=== PATIENT | male | born 1990 | race Caucasian/White ===

== ENCOUNTER → 2017-08-13 12:18 | Outpatient (CLI) | payer BC, SELFPAY ==
--- NOTE | 2017-08-13 | US_ITS ---
US abdomen limited: HISTORY: ITS.REASON: RUQ PAIN, abnormal CT ORDERING PHYSICIAN: Gema Alba PATIENT AGE: 27 years COMPARISON: 08/13/2017 FINDINGS: PANCREAS: Not well delineated due to overlying bowel gas LIVER: Fatty liver. No focal liver lesions or biliary dilatation. RIGHT KIDNEY: Unremarkable. Normal size and echogenicity. No hydronephrosis GALLBLADDER: Mildly distended gallbladder with stones and sludge. No gallbladder wall thickening, pericholecystic fluid, or biliary dilatation. Common bile duct measures 3 mm. IMPRESSION: Cholelithiasis with gallbladder sludge and mildly distended gallbladder
[2017-08-13 12:38] LABS: Basophils # 0.1 K/mm3 (0-0.2); Basophils % 0.8 % (0.1-2.0); Eosinophils # 0.2 K/mm3 (0.0-0.4); Eosinophils % 1.9 % (0.1-12.0); Hematocrit 46.9 % (42.0-52.0); Lymphocytes # 2.2 K/mm3 (0.7-4.5); Lymphocytes % 27.7 K/mm3 (10-50); Mean Corpuscular HGB Conc 34.1 g/dL (31.8-35.4); Mean Corpuscular Hemoglobin 29.6 pg (27.0-31.2); Mean Corpuscular Volume 86.9 fl (80-94); Mean Platelet Volume 7.4 fl (7.4-10.4); Monocytes # 0.6 K/mm3 (0.1-1.0); Monocytes % 7.5 % (1.7-9.3); Neutrophils # 4.9 K/mm3 (1.8-7.8); Neutrophils % 62.2 % (37.0-80.0); Platelet Count 279 K/mm3 (142-424); White Blood Count 7.8 K/mm3 (4.8-10.8)
[2017-08-13 13:10] LABS: Alanine Aminotransferase 508 U/L (12-78); Albumin Level 3.9 gm/dL (3.4-5.0); Albumin/Globulin Ratio 0.9 (1.1-1.8); Alkaline Phosphatase 243 U/L (46-116); Amylase 39 U/L (25-125); Anion Gap 14.8 mEq/L (5-15); Aspartate Amino Transferase 151 U/L (15-37); Bilirubin,Total 5.1 mg/dL (0.2-1.0); Blood Urea Nitrogen 10 mg/dL (7-18); Calcium 9.6 mg/dL (8.5-10.1); Carbon Dioxide 26 mmol/L (21.0-32.0); Chloride 104 mmol/L (98-107); Creatinine,Serum 0.91 mg/dL (0.70-1.30); Estimated Glomerular Filt Rate 101 ml/min (>60); GFR (African American) 122 ML/MIN (>60); Globulin 4.3 gm/dl (1.3-3.2); Glucose 96 mg/dL (74-106); Lipase 122 u/L (73-393); Potassium 3.8 mmoL/L (3.5-5.1); Sodium 141 mmol/L (136-145); Total Protein,Serum 8.2 gm/dL (6.4-8.2)
--- NOTE | 2017-08-13 14:36 | CT_ITS ---
CT abdomen pelvis w con CLINICAL INDICATION: Right upper quadrant pain with elevated liver enzymes ITS.REASON: RUQ PAIN ORDERING PHYSICIAN: Gema Alba PATIENT AGE: 27 years COMPARISON: 07/17/2016 TECHNIQUE: Axial images obtained with sagittal and coronal reformats. All CT scans at the facility use one or more dose reduction, viz: automated exposure control; ma/kV adjustment per patient size (including targeted exams where dose is matched to indication; i.e. head); or iterative reconstruction technique. PROCEDURE: Oral Contrast: Redicat IV Contrast: 75 mL's of Isovue-370. FINDINGS: No acute finding in the lung bases. The immediate enhanced images there is a subtle area of decreased attenuation involving either aspect of the right hepatic lobe at 4 mm anterior to the gallbladder. This is of questionable clinical significance not apparent on the delayed images and millimeters in volume averaging artifact. There is some increased density within the posterior aspect of the gallbladder may be related to stones and/or sludge. Gallbladder is somewhat elongated at 10 cm. No obvious biliary ductal dilatation. The spleen, adrenal glands, pancreas, and kidneys have an unremarkable appearance. No intestinal obstruction or free air is evident. No evidence of appendicitis or diverticulitis There is mild thickening of the ascending colon and hepatic flexure. This could be due to mild colitis or nondistention. No pelvic mass abnormal fluid collection or focal inflammatory changes evident. No acute bony anomalies. IMPRESSION: 1. Slight increased density along the posterior aspect of the gallbladder which may be related to stones and/or sludge. Ultrasound may be of further value. 2. Mild thickening of the ascending colon and hepatic flexure. This may be due to nondistention or mild colitis.
== END ==
PROVIDERS: Visit Provider Nurse Practitioner Family
DX: R10.11 Right upper quadrant pain (principal)
CPT/HCPCS: 36415; 74177; 76705; 80053; 82150; 83690; 85025; Q9967

== ENCOUNTER 2020-07-15 10:34 | Emergency (ER) | payer BC, SELFPAY ==
[2020-07-15 10:40] VITALS: BP 129/80; PULSE 96; RESP 20; TEMP 37; O2SAT 100; BMI 35.1
--- NOTE | 2020-07-15 10:54 | HMH.EDUTC ---
[facility] Disposition Clinical Impression: Encounter for laboratory testing for COVID-19 virus Disposition: Home, Self-Care Condition on Discharge: Good Instructions: DI for COVID-19 (Suspected or Confirmed ), Preventing the Spread of Coronavirus Discharge Instructions Additional Instructions: You were tested for today for COVID19 your test result should be back in the next 24-48 hours, you may call to the [facility] to see if your test results are back in the next 48 hours [phone] [facility] hours are 9am-9pm You was given a handout with instructions for Self Quarantine and Self isolation for while you wait on test results and what to do if they are positive If you are positive the Health Dept will be contacting you also Referrals: Nick Bhatt MD [Primary Care Provider] - As needed Time of Disposition: 10:56 Medical Decision Making - [place] Inquiry Pt receiving controlled substance: No [place] was queried for this patient: No Vital Signs: 07/15/20 10:40 Temperature 98.6 F Temperature Source Oral Pulse Rate [Right Brachial] 96 H Respiratory Rate 20 Blood Pressure [Right Arm] 129/80 Blood Pressure Mean [Right Arm] 96 Blood Pressure Source [Right Arm] Automatic Cuff Blood Pressure Position [Right Arm] Sitting 02 Sat by Pulse Oximetry 100 Oxygen Delivery Method Room Air Orders (Tests/Meds): ORDERS Category Date Time Status Covid-19 Nasal PCR ([facility]) Routine Lab 07/15/20 10:44 Received [facility] HPI - General Stated complaint: Covid Test Time Seen by Provider: 07/15/20 10:55 Mode of Arrival: Ambulatory Source of Information: Patient Limitations: No Limitations Description of Symptoms (Recalled from Triage Doc. 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 - Related Data Allergies Allergy/AdvReac Type Severity Reaction Status Date / Time No Known Allergies Allergy Verified 04/16/21 10:54 - Worker's Comp Is this a Worker's Comp case?: No [facility] History - Hepatitis A Screen Drug use history?: No High risk sexual behaviors?: No History of sexually transmitted infection?: No Currently employed?: No Childcare worker?: No Do you have indoor plumbing?: Yes Do you have electricity?: Yes Attestation statement:: This patient has been screened for Hepatitis A risk factors. I have reviewed the patient's past medical history: Yes ROS Obtained: Yes All systems reviewed & no additional complaints, Yes Systems reviewed as appropriate & no additional complaints - Constitutional Constitutional: Reports system reviewed and no additional complaints, except as docu - Eyes Eyes: Reports system reviewed and no additional complaints, except as docu - ENT Ears, Nose, Mouth, and Throat: Reports system reviewed and no additional complaints, except as docu - Cardiovascular Cardiovascular: Reports system reviewed and no additional complaints, except as docu - Respiratory Respiratory: Reports system reviewed and no additional complaints, except as docu Physical Exam - General General appearance: alert, in no apparent distress - ENT ENT exam: Present: normal exam, normal oropharynx, mucous membranes moist, TM's normal bilaterally, normal external ear exam - Respiratory Respiratory exam: Present: normal lung sounds bilaterally. Absent: respiratory distress - Cardiovascular Cardiovascular exam: Present: regular rate, normal rhythm. Absent: JVD - Abdominal Exam Abdominal exam: Present: soft, normal bowel sounds. Absent: distention, tenderness, guarding - Neurolo
[2020-07-15 10:56] VITALS: BP 129/80; PULSE 96; RESP 20; TEMP 37; O2SAT 100
== END 2020-07-15 11:03 | disposition home or self-care (01) ==
PROVIDERS: Emergency Provider Nurse Practitioner; PCP Internal Medicine Adolescent Medicine
DX: Z11.52 Encounter for screening for COVID-19 (principal)
CPT/HCPCS: 99202; G0463; U0003

== ENCOUNTER 2025-01-21 10:14 | Outpatient (CLI) | payer BC, SELFPAY ==
--- OUTSIDE RECORDS SUMMARY | 2025-01-21 10:47 | XMS_ITS | Clinical Summary ---
Author Organization Healthcare Address [address] [place] [address] Care Team Providers Care Rattlesnake Farmer Name Role Phone Unavailable Primary Care Provider Unavailabl e Immunizations Immunization Administration Dates Next Due Pfizer-BioNTech COVID-19 Vac cine ([place]os[place] Cap) 12+ years (zach-sucrose) 04/18/2021 Pfizer-BioNTech COVID-19 Vaccine (Purple Cap) 12 + 03/28/2021 Social History Tobacco Use Types Packs/Day Years Used Date Smoking Tobacco: Never Assessed Sex and Gender Information Value Date Recorded Sex Assigned at Not on file Legal Sex Male 6:13 PM EDT Gender Identity Not on file Sexual Orientation Not on file Plan of Treatment Health Maintenance Due Date Last Done Comments [facility]-Depression Screening 1991 [facility]-Infant/Child/Adol SDOH Screenings 1991 [facility]-DTaP,Tdap,and Td Vaccines (2 - Tdap) 07/02/2002 07/01/2002 [facility]-Varicella Vaccines (1 of 2 - 13+ 2-dose series) 2004 [facility]- SDOH Screenings 2009 [facility]-Adult SDOH Screenings 2009 HPV Vaccines (1 - 3-dose SCDM series) 2018 [id number] Vaccine (3 - season) 2024 04/18/2021, 03/28/2021 [facility]-Influenza Vaccine (#1) 2024 [facility]-Zoster Vaccines (1 of 2) 2041 [facility]-Hepatitis B Vaccines Completed 003, 01/07/2002, 12/03/2001 [facility]-HIB Vaccines Aged Out No longer e ligible based on patient's age to complete this topic [facility]-Hepatitis A Vaccines Aged Out No longer eligible based on patient's age to complete this topic [facility]-IPV Vaccines Aged Out No longer e ligible based on patient's age to complete this topic [facility]-Pneumococcal Vaccine: Pediatrics (0 to 5 Years) and At-Risk Patients (6 to 49 Years) Aged Out No longer eligible b ased on patient's age to complete this topic [facility]-Rotavirus Vaccines Aged Out No lo nger eligible based on patient's age to complete this topic
[2025-01-21 12:59] LABS: PH,Semen 8.0 (7.3-8.3); Sperm Count < 1 mil/mm3 (20-160); Sperm Motility 30 % (50-90); Volume,Semen 3.0 ml (2.0-5.0); WBCs,Semen Small
[2025-01-21 13:00] LABS: 3Hr Motility Quality Weak Progression (Mod-Rapid)
== END 2025-01-21 23:59 | disposition home or self-care (01) ==
LOC: LAB 10:16
PROVIDERS: PCP Internal Medicine Adolescent Medicine; Visit Provider Obstetrics & Gynecology
DX: Z31.41 Encounter for fertility testing (principal)
CPT/HCPCS: 89320

== ENCOUNTER 2025-01-30 09:45 | Outpatient (CLI) | payer BC, SELFPAY ==
--- OUTSIDE RECORDS SUMMARY | 2025-01-30 09:49 | XMS_ITS | Clinical Summary ---
Author Organization Healthcare Address [address] [place] [address] Care Team Providers Care Assistant Corporate Controller Name Role Phone Unavailable Primary Care Provider [...] Date Last Done Comments [facility]-Depression Screening 1991 [facility]-/Child/Adol SDOH Screenings 1991 [facility]-DTaP,Tdap,and Td Vaccines (2 - Tdap) 07/02/2002 07/01/2002 [facility]-Varicella Vaccines (1 of 2 - 13+ 2-dose series) 2004 [facility]- SDOH Screenings 2009 [facility]-Adult SDOH Screenings 2009 HPV Vaccines (1 - 3-dose SCDM series) 2018 [id number] Vaccine (3 - season) 2024 04/18/2021, 03/28/2021 [...]
--- OUTSIDE RECORDS SUMMARY | 2025-01-30 09:49 | XMS_ITS ---
Author Organization Unknown ENCOUNTERS Encounter Performer Location Date Diagnosis Diagnosis Status Emergency [facility] [address] [place] [address] [id number] ARNULFO *Note: Encounters from your own facility or health system may be excluded. Allergies, Adverse Reactions, Alerts Allergen Type Severity Identification Date Medications Name Date Quantity Days Supplied GPI Number
[2025-01-30 10:22] LABS: Hematocrit 45.8 % (42.0-52.0); Hemoglobin 15.9 g/dL (14.1-18.0); Immature Granulocytes % 1.1 %; Mean Corpuscular HGB Conc 34.7 g/dL (31.8-35.4); Mean Corpuscular Hemoglobin 30.6 pg (27.0-31.2); Mean Corpuscular Volume 88.1 fl (80-94); Nucleated Red Blood Cells % 0 %; Platelet Count 217 K/mm3 (142-424); Red Blood Count 5.20 M/mm3 (4.60-6.20); Red Cell Distribution Width-SD 39.8 fL; White Blood Count 6.3 K/mm3 (4.8-10.8)
[2025-01-30 11:31] LABS: Alanine Aminotransferase 25 U/L (12-78); Albumin Level 3.8 g/dl (3.5-5.0); Albumin/Globulin Ratio 1.1 (1.1-1.8); Alkaline Phosphatase 73 U/L (38-126); Amylase 57 U/L (30-110); Anion Gap 10.6 mEq/L (5-15); Aspartate Amino Transferase 23 U/L (17-59); Bilirubin,Total 0.8 mg/dl (0.2-1.3); Blood Urea Nitrogen 16 mg/dl (9-20); Calcium 9.3 mg/dl (8.4-10.2); Carbon Dioxide 29 mmol/L (22.0-30.0); Chloride 103 mmol/L (98-107); Cholesterol 196 mg/dl (140-200); Creatinine,Serum 1.00 mg/dl (0.66-1.25); Estimated Glomerular Filt Rate 86 ml/min (>60); GFR (African American) 104 ML/MIN (>60); Globulin 3.6 g/dL (1.3-3.2); Glucose 92 mg/dl (74-100); HDL Cholesterol 41 mg/dl (40-60); Lipase 65 U/L (23-300); Potassium 4.6 mmoL/L (3.5-5.1); Sodium 138 mmol/L (136-145); Total Protein,Serum 7.4 g/dl (6.3-8.2); Triglycerides 141 mg/dl (30-150)
[2025-01-30 12:01] LABS: Thyroid Stimulating Hormone 0.73 uIU/mL (0.465-4.68)
[2025-01-30 12:42] LABS: Hemoglobin A1C 5.0 % (4.0-6.0)
== END 2025-01-30 23:59 | disposition home or self-care (01) ==
LOC: LAB 09:47
PROVIDERS: PCP Internal Medicine Adolescent Medicine; Visit Provider Nurse Practitioner Family
DX: Z00.00 Encounter for general adult medical examination without abnormal findings (principal); K80.10 Calculus of gallbladder with chronic cholecystitis without obstruction; R19.8 Other specified symptoms and signs involving the digestive system and abdomen
CPT/HCPCS: 36415; 80053; 80061; 82150; 83036; 83690; 84443; 85025

== ENCOUNTER 2025-02-04 07:45 | Outpatient (CLI) | payer BC, SELFPAY ==
--- OUTSIDE RECORDS SUMMARY | 2025-02-04 07:47 | XMS_ITS ---
Author Organization Unknown ENCOUNTERS Encounter Performer Location Date Diagnosis Diagnosis Status Emergency [facility] [address] [place] [address] [id number] ARNUL[place] *Note: Encounters from your own facility or health system may be excluded. Allergies, Adverse Reactions, Alerts Allergen Type Severity Identification Date Medications Name Date Quantity Days Supplied GPI Number
--- OUTSIDE RECORDS SUMMARY | 2025-02-04 07:47 | XMS_ITS | Clinical Summary ---
Author Organization Healthcare Address [address] [place] [address] Care Team Providers Care Durable Medical Equipment Repairer Name Role Phone Unavailable Primary Care Provider [...] Vaccines (1 - 3-dose SCDM series) 2018 [id number] Vaccine (3 - season) 2024 04/18/2021, 03/28/2021 [...]
--- NOTE | 2025-02-04 07:48 | US_ITS ---
FINAL REPORT CLINICAL HISTORY: RUQ PAIN FINDINGS: RIGHT UPPER QUADRANT ULTRASOUND Technique: Ultrasound images of the right upper quadrant were obtained. There is focal fatty infiltration of the liver. Multiple gallstones are seen in an incompletely distended gallbladder. Common duct is normal. The right kidney is unremarkable. IMPRESSION: Fatty liver. Cholelithiasis. Reviewed, Interpreted and Dictated by Magdiel Prescott MD Transcribed by Rosa Maria Harper Authenticated and [facility]
== END 2025-02-04 23:59 | disposition home or self-care (01) ==
LOC: RAD 07:45
PROVIDERS: PCP Internal Medicine Adolescent Medicine; Visit Provider Nurse Practitioner Family
DX: K80.10 Calculus of gallbladder with chronic cholecystitis without obstruction (principal); K76.0 Fatty (change of) liver, not elsewhere classified
CPT/HCPCS: 76705

== ENCOUNTER 2025-02-12 07:44 | Outpatient (CLI) | payer BC, SELFPAY ==
--- NOTE | 2025-02-12 07:46 | FL_ITS ---
FINAL REPORT CLINICAL HISTORY: UPPER ABD PAIN, CALCULUS OF GALLBLADDER right and middle upper abd pain 2 years FINDINGS: UPPER GI HISTORY: Epigastric pain. Fluoroscopy Time: 2.0 minutes Dose Area Product (DAP): 2522.20 Gy/cm2. PROCEDURE: The patient ingested barium. Effervescent crystals were also administered. Fluoroscopic spot films were obtained. FINDINGS: No esophageal stricture is identified. A 13 mm barium tablet passes through the esophagus and into the stomach without delay. There is a small sliding-type hiatal hernia. Reflux from the hernia was demonstrated to the mid esophagus. Peristalsis is normal. The rugal fold pattern of the stomach is normal. The duodenal bulb is normal. IMPRESSION: Small sliding-type hiatal hernia with reflux of contrast from the hernia into the midesophagus. Reviewed, Interpreted and Dictated by Gabriella Pierce MD Transcribed by RICO Dougherty Authenticated and [facility]
--- OUTSIDE RECORDS SUMMARY | 2025-02-12 07:46 | XMS_ITS ---
Author Organization Unknown ENCOUNTERS Encounter Performer Location Date Diagnosis Diagnosis Status Emergency [facility] [address] [place] [address] [id number] ARNULFO *Note: Encounters from your own facility or health system may be excluded. Allergies, Adverse Reactions, Alerts Allergen Type Severity Identification Date Medications Name Date Quantity Days Supplied GPI Number
--- OUTSIDE RECORDS SUMMARY | 2025-02-12 07:47 | XMS_ITS | Clinical Summary ---
Author Organization Healthcare Address [address] [place] [address] Care Team Providers Care Commissioned Security Officer Name Role Phone Unavailable Primary Care Provider [...] Vaccines (1 - 3-dose SCDM series) 2018 [id number] Vaccine (3 - season) 2024 04/18/2021, 03/28/2021 [...]
== END 2025-02-12 23:59 | disposition home or self-care (01) ==
PROVIDERS: PCP Internal Medicine Adolescent Medicine; Visit Provider Nurse Practitioner Family
DX: K80.10 Calculus of gallbladder with chronic cholecystitis without obstruction (principal); K44.9 Diaphragmatic hernia without obstruction or gangrene
CPT/HCPCS: 74246

== ENCOUNTER 2025-02-19 09:19 | Outpatient (CLI) | payer BC, SELFPAY ==
--- OUTSIDE RECORDS SUMMARY | 2012-08-19 10:30 | XMS_ITS | Continuity of Care Document ---
Author Organization [facility] Address [address] [place] [address] Phone Care Team Providers Care Custom Feed Corn Operator Name Role Phone Oz Ortiz MD Unavailable Unavailable Advance Directives Directive Yes / No Effective Date File Name No Information Encounters Encounter Description Practice Location Reason(s) For Visit Diagnoses Date Provider Providers Copied on Encounter [facility] , [address] [place], [address], [place] tel:[phone] [facility] No Information Diana Clinton. [address] [place], [place], [id number], [place]. tel:[phone] Family History Family Member Type Diagnosis Age At Onset No Information Payers Payer name Insurance type Covered libertarian ID Authoriza tion(s) No Information Social History Type Description Quantity Date Captured Comments Sex Male Smoking Status No Information Chief Complaint And Reason For Visit No Information Reason For Referral Reason For Referral No Information History Of Present Illness Encounter Date Complaint History Of Prese nt Illness No Information Functional Status Date Functional Assessmen t No Information Instructions Date Instruction Additional Infor mation No Information Assessments Type Assessment Date No Information Patient Care Teams Name Effective Dates (start - stop) Status Members No Information
--- OUTSIDE RECORDS SUMMARY | 2025-02-19 09:34 | XMS_ITS ---
Author Organization Unknown ENCOUNTERS Encounter Performer Location Date Diagnosis Diagnosis Status Emergency [facility] [address] [place] [address] [id number] ARNULFO *Note: Encounters from your own facility or health system may be excluded. Allergies, Adverse Reactions, Alerts Allergen Type Severity Identification Date Medications Name Date Quantity Days Supplied GPI Number
--- OUTSIDE RECORDS SUMMARY | 2025-02-19 09:34 | XMS_ITS | Clinical Summary ---
Author Organization Healthcare Address [address] [place] [address] Care Team Providers Care Edging Machine Setter Name Role Phone Unavailable Primary Care Provider [...] Vaccines (1 - 3-dose SCDM series) 2018 [id number] Vaccine (3 - season) 2024 04/18/2021, 03/28/2021 [...]
[2025-02-20 10:08] LABS: FSH 9.5 mIU/mL (1.5-12.4); LH 9.2 mIU/mL (1.7-8.6)
== END 2025-02-19 23:59 | disposition home or self-care (01) ==
LOC: LAB 09:20
PROVIDERS: PCP Internal Medicine Adolescent Medicine; Visit Provider Specialist
DX: E29.1 Testicular hypofunction (principal)
CPT/HCPCS: 36415; 82670; 83001; 83002; 84403

== ENCOUNTER 2025-03-23 09:00 | Outpatient (CLI) | payer BC, SELFPAY ==
--- OUTSIDE RECORDS SUMMARY | 2025-03-23 09:05 | XMS_ITS | Clinical Summary ---
Author Organization Healthcare Address [address] [place] [address] Care Team Providers Care Tool Maker Bench Name Role Phone Unavailable Primary Care Provider [...] SDOH Screenings 2009 [facility]-Adult SDOH Screenings 2009 [id number] Vaccine ( season) 2024 04/18/2021, 03/28/2021 [facility]-Influenza Vaccine (#1) 2024 [facility]-Zoster Vaccines (1 of 2) 2041 [facility]-Hepatitis B Vaccines Completed 003, 01/07/2002, 12/03/2001 HPV Vaccines (No Doses Required) Completed [facility]-HIB Vaccines Aged Out No longer e [...]
[2025-03-23 09:39] LABS: Hematocrit 44.9 % (42.0-52.0)
== END 2025-03-23 23:59 | disposition home or self-care (01) ==
LOC: LAB 09:01
PROVIDERS: PCP Internal Medicine Adolescent Medicine; Visit Provider Specialist
DX: E29.1 Testicular hypofunction (principal)
CPT/HCPCS: 36415; 82670; 84403; 85014